=== PATIENT | male | born 1995 | race Caucasian/White ===

== ENCOUNTER → 2017-06-28 | Outpatient (CLI) | payer OTHER ==
[2017-06-28 12:53] LABS: BASO % 0.8 %; BASO ABS # 0.05 K/uL (0-0.2); EOS % 1.7 %; HEMATOCRIT 45.4 % (42-52); HEMOGLOBIN 15.7 g/dL (14.0-18.0); IG# 0.01 K/uL (0.00-0.02); LYMPH % 35.3 %; LYMPH ABS # 2.13 K/uL (1.2-3.4); MEAN CELL VOLUME 90.1 fL (80-100); MEAN CORPUSCULAR HEMOGLOBIN 31.2 pg (25-34); MEAN CORPUSCULAR HGB CONC 34.6 g/dl (32-36); MEAN PLATELET VOLUME 10.2 fL (7.4-10.4); MONO % 10.9 %; MONO ABS # 0.66 K/uL (0.11-0.59); NEUT % 51.1 %; NEUT ABS # 3.08 K/uL (1.4-6.5); PLATELET COUNT 195 K/uL (130-400); RED CELL DISTRIBUTION WIDTH CV 12.7 % (11.5-14.5); RED CELL DISTRIBUTION WIDTH SD 41.3 fL (36.4-46.3); WHITE BLOOD COUNT 6.03 K/uL (4.8-10.8)
[2017-06-28 13:05] LABS: ALT/SGPT 25 U/L (12-78); AST/SGOT 16 U/L (15-37); BLOOD UREA NITROGEN 8 mg/dl (7-18); CALCIUM 9.6 mg/dl (8.5-10.1); CARBON DIOXIDE 31 mmol/L (21-32); CREATININE 0.89 mg/dl (0.60-1.40); GLUCOSE 77 mg/dl (70-99); POTASSIUM 3.9 mmol/L (3.5-5.1); SODIUM 138 mmol/L (136-145)
[2017-06-28 13:08] LABS: ALKALINE PHOSPHATASE 89 U/L (45-117); TOTAL PROTEIN 8.4 gm/dl (6.4-8.2)
== END | disposition home or self-care (01) ==
LOC: C.LAB1850 10:57
PROVIDERS: ATTEND Neuromusculoskeletal Medicine & OMM
DX: R59.0 Localized enlarged lymph nodes (principal)

== ENCOUNTER → 2017-07-04 | Outpatient (CLI) | payer OTHER ==
--- NOTE | 2017-07-04 08:41 | DIAGNOSTIC IMAGING REPORT ---
ABDOMEN LIMITED (US) HISTORY: 21 years-old Male R59.0 Lymphadenopathy, inguinal acute inguinal adenopathy COMPARISON: None available TECHNIQUE: Multiple real-time sonographic images of the bilateral inguinal regions were obtained assessing grayscale appearance and color flow FINDINGS: Multiple right-sided inguinal lymph nodes are seen, largest of which measures up to 2.5 x 0.5 x 1.2 cm with a normal echogenic fatty hilum. Multiple left-sided inguinal lymph nodes are seen, largest of which measures 2.2 x 0.6 x 1.0 cm with normal fatty hiral. No lymph nodes are seen which are larger than 1 cm in short axis to suggest pathology. IMPRESSION: Bilateral mildly prominent nonenlarged inguinal lymph nodes as above are likely physiologic. No pathologically enlarged lymph nodes are identified. Follow-up recommended. The above report was generated using voice recognition software. It may contain grammatical, syntax or spelling errors. Electronically signed by: Antwon Gonzalez M.D. 07/04/2017 8:39 AM Dictated Date/Time: 07/04/2017 8:37 AM
== END | disposition home or self-care (01) ==
LOC: C.ULTR 08:09
PROVIDERS: ATTEND Neuromusculoskeletal Medicine & OMM
DX: R59.0 Localized enlarged lymph nodes (principal)